=== PATIENT | male | born 1935 | race African-American/Black ===

== ENCOUNTER 2024-06-15 11:09 | Inpatient (IN) | payer MEDICARE ==
[~2024-06-15] VITALS: Ht 170.2 cm; Wt 63.5 kg
[2024-06-15] MEDS ORDERED: ONDANSETRON HCL/PF 4 MG/2 ML VIAL IVP PRN (12:00)
[2024-06-15] MEDS ORDERED: ACETAMINOPHEN 325 MG TABLET PO PRN (12:00)
[2024-06-15] MEDS ORDERED: MAG HYDROX/AL HYDROX/SIMETH 30 ML UDC PO PRN (12:00)
[2024-06-15] MEDS ORDERED: Z GUARD REMEDY 4 OZ OINT TP PRN (12:00)
[2024-06-15] MEDS ORDERED: ASPI-1420 PO (12:04)
[2024-06-15] MEDS ORDERED: POLY510P31 PO (12:04)
[2024-06-15] MEDS ORDERED: CINA30TA6 PO (12:04)
[2024-06-15] MEDS ORDERED: DOCU100C36 PO (12:04)
[2024-06-15] MEDS ORDERED: LEVO75TA7 PO (12:04)
[2024-06-15] MEDS ORDERED: FINA5TAB11 PO (12:04)
[2024-06-15] MEDS ORDERED: LATA2.5D15 EACHEYE (12:04)
[2024-06-15] MEDS ORDERED: ERGO500093 PO (12:04)
[2024-06-15] MEDS ORDERED: DICL100G34 TP (12:04)
[2024-06-15] MEDS ORDERED: SIMV-46 PO (12:04)
[2024-06-15] MEDS ORDERED: TAMS-12 PO (12:04)
[2024-06-15 12:24] LABS: BASOPHILS # (AUTO) 0.1 K/uL (0.0-0.2); BASOPHILS % (AUTO) 1.2 % (0.0-2.0); EOSINOPHILS # (AUTO) 0.2 K/uL (0.0-0.7); EOSINOPHILS % (AUTO) 4.2 % (0.0-6.0); HEMATOCRIT 39 % (39-51); HEMOGLOBIN 13.6 g/dL (13.5-17.5); LYMPHOCYTES # (AUTO) 1.8 K/uL (0.8-4.8); MEAN CORPUSCULAR HEMOGLOBIN 32 PG (26.0-33.0); MEAN CORPUSCULAR HGB CONC 34 g/dl (31.0-36.0); MEAN CORPUSCULAR VOLUME 94 fL (80-96); MONOCYTES # (AUTO) 0.3 K/uL (0.1-1.30); NEUTROPHILS % (AUTO) 55.6 % (43.0-81.0); PLATELET COUNT (AUTO) 227 K/uL (150-450); RED BLOOD CELL COUNT(AUTO) 4.18 MIL/uL (4.5-6.0); RED CELL DISTRIBUTION WIDTH 14.3 % (11.5-15.0); WHITE BLOOD COUNT (AUTO) 5.3 K/uL (4.3-11.0)
[2024-06-15] MEDS: ASPIRIN 325 MG TABLET PO ONE (13:03)
[2024-06-15 16:00] VITALS: BP 167/50; TEMP 97.4; O2SAT 96
[2024-06-15 17:05] LABS: CALCIUM, SERUM 10.7 mg/dL (8.5-10.1); CARBON DIOXIDE 27 mmol/L (21-32); CHLORIDE 108 mmol/L (98-107); CREATININE 1.8 mg/dL (0.6-1.3); GLUCOSE 112 mg/dL (74-106); SODIUM SERUM 139 mmol/L (136-145); UREA NITROGEN, BLOOD 30 mg/dL (7-18)
[2024-06-15 20:00] VITALS: BP 172/73; TEMP 97.4; O2SAT 98
[2024-06-16] VITALS: BP 174/78; TEMP 98.2; O2SAT 99
[2024-06-16] MEDS: CLONIDINE HCL 0.1 MG TABLET PO PRN (00:51)
[2024-06-16 04:00] VITALS: BP 151/65; TEMP 97.7; O2SAT 98
[2024-06-16 07:00] VITALS: BP 152/51; TEMP 97.7; O2SAT 98
[2024-06-16 07:59] LABS: BASOPHILS # (AUTO) 0.1 K/uL (0.0-0.2); BASOPHILS % (AUTO) 0.9 % (0.0-2.0); EOSINOPHILS # (AUTO) 0.3 K/uL (0.0-0.7); EOSINOPHILS % (AUTO) 5.9 % (0.0-6.0); HEMATOCRIT 39 % (39-51); LYMPHOCYTES # (AUTO) 2.3 K/uL (0.8-4.8); LYMPHOCYTES % (AUTO) 41.1 % (20.0-44.0); MEAN CORPUSCULAR HEMOGLOBIN 32 PG (26.0-33.0); MEAN CORPUSCULAR HGB CONC 33 g/dl (31.0-36.0); MEAN CORPUSCULAR VOLUME 94 fL (80-96); MONOCYTES # (AUTO) 0.4 K/uL (0.1-1.30); MONOCYTES % (AUTO) 7.3 % (2.0-12.0); NEUTROPHILS # (AUTO) 2.5 K/uL (1.8-8.9); NEUTROPHILS % (AUTO) 44.8 % (43.0-81.0); PLATELET COUNT (AUTO) 236 K/uL (150-450); RED BLOOD CELL COUNT(AUTO) 4.11 MIL/uL (4.5-6.0); RED CELL DISTRIBUTION WIDTH 14.4 % (11.5-15.0); WHITE BLOOD COUNT (AUTO) 5.5 K/uL (4.3-11.0)
[2024-06-16 08:15] LABS: CALCIUM, SERUM 10.6 mg/dL (8.5-10.1); CREATININE 1.3 mg/dL (0.6-1.3); MAGNESIUM 2.1 mg/dL (1.8-2.4); PHOSPHORUS 2.4 mg/dL (2.5-4.9); POTASSIUM 4.7 mmol/L (3.5-5.1)
[2024-06-16] MEDS ORDERED: DOCUSATE SODIUM 100 MG CAPSULE PO PRN (10:30)
[2024-06-16 11:11] VITALS: BP 127/68; TEMP 97.4; O2SAT 99
[2024-06-16] MEDS: DICLOFENAC TOPICAL 100 GM TUBE TP SCH (13:00)
[2024-06-16 16:00] VITALS: BP 131/76; TEMP 97.3; O2SAT 99
[2024-06-16] MEDS: K PHOS NEUTRAL 250 MG TABLET PO ONE (16:48)
[2024-06-16] MEDS: AMLODIPINE BESYLATE 5 MG TABLET PO SCH (16:48)
[2024-06-16 20:00] VITALS: BP 172/72; TEMP 97.3; O2SAT 98
[2024-06-16] MEDS: TAMSULOSIN 0.4 MG CAP.SR.24H PO SCH (20:21)
[2024-06-17] VITALS: BP_SYST 150; BP_SYST 161; BP_DIAS 66; BP_DIAS 83; TEMP 98.2; TEMP 98.4; O2SAT 97; O2SAT 98
[2024-06-17 04:38] VITALS: BP 150/66; TEMP 98.4; O2SAT 97
[2024-06-17 07:58] LABS: ALBUMIN 2.9 g/dL (3.4-5.0); BILIRUBIN,TOTAL 0.6 mg/dL (0.2-1.0); CALCIUM, SERUM 10.5 mg/dL (8.5-10.1); CREATININE 1.4 mg/dL (0.6-1.3); MAGNESIUM 1.9 mg/dL (1.8-2.4); PHOSPHORUS 2.5 mg/dL (2.5-4.9); POTASSIUM 4.3 mmol/L (3.5-5.1); TOTAL PROTEIN, SERUM 6.9 g/dL (6.4-8.2)
[2024-06-17 08:01] LABS: BASOPHILS % (AUTO) 0.5 % (0.0-2.0); EOSINOPHILS # (AUTO) 0.2 K/uL (0.0-0.7); EOSINOPHILS % (AUTO) 2.2 % (0.0-6.0); HEMATOCRIT 40 % (39-51); HEMOGLOBIN 13.7 g/dL (13.5-17.5); LYMPHOCYTES # (AUTO) 2.1 K/uL (0.8-4.8); LYMPHOCYTES % (AUTO) 24.9 % (20.0-44.0); MEAN CORPUSCULAR HEMOGLOBIN 32 PG (26.0-33.0); MEAN CORPUSCULAR HGB CONC 34 g/dl (31.0-36.0); MEAN CORPUSCULAR VOLUME 94 fL (80-96); MONOCYTES # (AUTO) 0.4 K/uL (0.1-1.30); MONOCYTES % (AUTO) 4.9 % (2.0-12.0); NEUTROPHILS # (AUTO) 5.8 K/uL (1.8-8.9); NEUTROPHILS % (AUTO) 67.5 % (43.0-81.0); PLATELET COUNT (AUTO) 231 K/uL (150-450); RED BLOOD CELL COUNT(AUTO) 4.29 MIL/uL (4.5-6.0); RED CELL DISTRIBUTION WIDTH 13.9 % (11.5-15.0); WHITE BLOOD COUNT (AUTO) 8.6 K/uL (4.3-11.0)
[2024-06-17] MEDS: FINASTERIDE (5 MG) 5 MG TABLET PO SCH (08:50)
[2024-06-17] MEDS: CINACALCET HCL 30 MG TABLET PO SCH (08:51)
[2024-06-17] MEDS: ASPIRIN EC 81 MG TABLET.DR PO SCH (08:51)
[2024-06-17] MEDS: SIMVASTATIN 20 MG TABLET PO SCH (08:51)
[2024-06-17] MEDS: LEVOTHYROXINE SODIUM 75 MCG TABLET PO SCH (08:51)
[2024-06-17 18:13] LABS: URINE TOTAL PROTEIN 49.3 mg/dL (0-11.9)
[2024-06-17] MEDS: hydrALAZINE HCL 25 MG TABLET PO SCH (18:47)
[2024-06-17] MEDS: MAGNESIUM HYDROXIDE 30 ML UDC PO PRN (18:47)
[2024-06-17 20:00] VITALS: BP 146/87; TEMP 97.9; O2SAT 96
[2024-06-18] VITALS: BP 142/50; TEMP 97.9; O2SAT 97
[2024-06-18 04:00] VITALS: BP 144/59; TEMP 97.5; O2SAT 99
[2024-06-18 07:58] LABS: APPEARANCE,URINE CLEAR (CLEAR); BILIRUBIN,URINE NEGATIVE (NEGATIVE); BLOOD, URINE TRACE-INTA Ery/uL (NEGATIVE); COLOR,URINE YELLOW (YELLOW); KETONES,URINE NEGATIVE (NEGATIVE); LEUKOCYTE ESTERASE ,URINE NEGATIVE (NEGATIVE); NITRITE, URINE NEGATIVE (NEGATIVE); PROTEIN,URINE 2+ mg/dl (NEGATIVE); UGLUCOSE NEGATIVE (NEGATIVE); UROBILINOGEN,URINE 0.2 EU/dL (0.2)
[2024-06-18 08:00] VITALS: BP 129/49; TEMP 97.9; O2SAT 98
[2024-06-18 08:11] LABS: PTH, INTACT 102 pg/mL (15-65)
[2024-06-18 08:22] LABS: CALCIUM OXALATE CRYSTALS,UR Rare /HPF (None Seen)
[2024-06-18 08:24] LABS: ADD URINE CULTURE NO; BACTERIA,URINE None seen /HPF (None Seen)
[2024-06-18 08:26] LABS: RED BLOOD CELL CASTS,URINE Rare /LPF (None Seen)
[2024-06-18 09:00] VITALS: BP 129/49
[2024-06-18] MEDS: AMLODIPINE BESYLATE 5 MG TABLET PO SCH (09:00)
[2024-06-18 09:26] LABS: EOSINOPHIL,URINE None Seen
== END 2024-06-18 15:47 | DRG 205 ==
LOC: ER 11:09 → TELE 13:25
PROVIDERS: ADMIT Internal Medicine; ATTEND Internal Medicine
DX: M94.0 Chondrocostal junction syndrome [Tietze] (principal); G93.41 Metabolic encephalopathy; N17.0 Acute kidney failure with tubular necrosis; F03.93 Unspecified dementia, unspecified severity, with mood disturbance; E86.0 Dehydration; Z86.73 Personal history of transient ischemic attack (TIA), and cerebral infarction without residual deficits; E03.9 Hypothyroidism, unspecified; E78.5 Hyperlipidemia, unspecified; E11.40 Type 2 diabetes mellitus with diabetic neuropathy, unspecified; I12.9 Hypertensive chronic kidney disease with stage 1 through stage 4 chronic kidney disease, or unspecified chronic kidney disease; N18.30 Chronic kidney disease, stage 3 unspecified; Z86.79 Personal history of other diseases of the circulatory system; Z90.5 Acquired absence of kidney; I70.0 Atherosclerosis of aorta; N40.0 Benign prostatic hyperplasia without lower urinary tract symptoms; M89.8X9 Other specified disorders of bone, unspecified site; J44.9 Chronic obstructive pulmonary disease, unspecified; Z85.828 Personal history of other malignant neoplasm of skin; F32.9 Major depressive disorder, single episode, unspecified; B35.3 Tinea pedis; Z88.0 Allergy status to penicillin; Z88.5 Allergy status to narcotic agent; Z79.82 Long term (current) use of aspirin; Z79.890 Hormone replacement therapy; Z79.899 Other long term (current) drug therapy; D64.9 Anemia, unspecified; E11.22 Type 2 diabetes mellitus with diabetic chronic kidney disease; R62.7 Adult failure to thrive; I44.1 Atrioventricular block, second degree; R00.1 Bradycardia, unspecified
CPT/HCPCS: 36415; 71045-TC; 76770-TC; 80048-TC; 80053-TC; 81001; 82550-TC; 82570-TC; 83735-TC; 83970; 84100-TC; 84155; 84165; 84300-TC; 84484-TC; 85025-TC; 97110-TC; 97116-TC; 97530-TC; G0378